=== PATIENT | male | born 1980 | race Caucasian/White ===

== ENCOUNTER 2023-12-16 13:57 | Inpatient (IN) | payer OTHER ==
[2023-12-16] MEDS ORDERED: LOPERAMIDE HCL 2 MG CAPSULE PO PRN (17:47)
[2023-12-16] MEDS ORDERED: NALOXONE HCL 0.4 MG/ML VIAL IM PRN (17:47)
[2023-12-16] MEDS ORDERED: BENZONATATE 200 MG CAPSULE PO PRN (17:47)
[2023-12-16] MEDS ORDERED: NICOTINE POLACRILEX 2 MG GUM BUC PRN (17:47)
[2023-12-16] MEDS ORDERED: MAG HYDROX/AL HYDROX/SIMETH 30 ML UNIT-DOSE CUP PO PRN (17:47)
[2023-12-16] MEDS ORDERED: BENZOCAINE/MENTHOL (CHLORASEPTIC ) LOZENGE MM PRN (17:47)
[2023-12-16] MEDS ORDERED: NALOXONE HCL (KLOXXADO) 8 MG SPRAY NS PRN (17:47)
[2023-12-16] MEDS ORDERED: MAGNESIUM HYDROX 2400MG/30ML ORAL SUSPENSION 30 ML CUP PO PRN (17:47)
[2023-12-16] MEDS ORDERED: IBUPROFEN 600 MG TABLET (FP) PO PRN (17:47)
[2023-12-16] MEDS ORDERED: P-EPHED 60MG/TRIPROLIDI 2.5MG TABLET PO PRN (17:47)
[2023-12-16] MEDS ORDERED: guaiFENesin 600 MG TABLET.ER (FP) PO PRN (17:47)
[2023-12-16] MEDS ORDERED: ONDANSETRON *ODT* 4 MG TABLET SL PRN (17:47)
[2023-12-16] MEDS ORDERED: DICYCLOMINE HCL 10 MG CAPSULE PO PRN (17:47)
[2023-12-16] MEDS ORDERED: IBUPROFEN 400 MG TABLET (FP) PO PRN (17:47)
[2023-12-16] MEDS ORDERED: BISMUTH SUBSALICYLATE 524 MG/30 ML PO PRN (17:47)
[2023-12-16] MEDS ORDERED: POLYETHYLENE GLYCOL (HEALTHYLAX) 3350 17 GM PACKET PO PRN (17:47)
[2023-12-16] MEDS: methaDONE HCL 10 MG TABLET (FOR DETOX USE ONLY) PO ONE (19:17)
[2023-12-16] MEDS: ACETAMINOPHEN 325 MG TABLET (FP) PO PRN (19:23)
[2023-12-16] MEDS: clonazePAM 0.5 MG ODT TABLETS SL PRN (19:23)
[2023-12-16] MEDS: THIAMINE 100 MG TABLET PO SCH (21:02)
[2023-12-16] MEDS: MELATONIN 5 MG TABLETS PO SCH (21:02)
[2023-12-16] MEDS: METHOCARBAMOL 500 MG TABLET PO PRN (22:38)
[2023-12-17] MEDS: cloNIDine HCL 0.1 MG TABLET PO PRN (05:41)
[2023-12-17] MEDS: PRENATAL VITAMINS W/ FOLIC ACID TABLET (FP) PO SCH (09:28)
[2023-12-17 11:55] LABS: HEMATOCRIT 43.1 % (35.4-49); MCH 29.9 pg (25.7-33.7); MCHC 32.6 g/dl (32.0-35.9); MEAN CELL VOLUME 91.7 fl (80-96); MEAN PLT VOLUME 8.5 fl (7.5-11.1); PLATELET COUNT 315 10^3/uL (134-434); RDW 13.5 % (11.9-15.9); WHITE BLOOD COUNT 6.3 K/mm3 (4.0-10.0)
[2023-12-17 11:58] LABS: POTASSIUM 4.5 mmol/L (3.5-5.1)
[2023-12-17 12:04] LABS: ALBUMIN 3.5 g/dl (3.4-5.0); BLOOD UREA NITROGEN 18.1 mg/dL (7-18)
[2023-12-17 12:05] LABS: CALCIUM 9.5 mg/dL (8.5-10.1)
[2023-12-17 12:07] LABS: CREATININE 1.1 mg/dL (0.55-1.3)
[2023-12-17 12:09] LABS: BILIRUBIN,TOTAL 0.2 mg/dL (0.2-1); TOT PROT 7.3 g/dl (6.4-8.2)
[2023-12-17] MEDS: hydrOXYzine PAMOATE 25 MG CAPSULE (FP) PO PRN (22:04)
[2023-12-18] MEDS: methaDONE HCL 10 MG TABLET (FOR DETOX USE ONLY) PO ONE (09:28)
[2023-12-18] MEDS: diazePAM 5 MG TABLET PO SCH (10:19)
[2023-12-18] MEDS: clonazePAM 0.5 MG ODT TABLETS SL PRN (19:24)
[2023-12-18 20:40] VITALS: RESP 18
[2023-12-19 09:31] VITALS: BP 116/74; PULSE 87; TEMP 97
== END 2023-12-19 11:12 | disposition home or self-care (01) | DRG 773 ==
LOC: YASAS 13:57 → Y3N 17:53
PROVIDERS: ADMIT Allergy & Immunology; ATTEND Surgery
PROC: HZ2ZZZZ Detoxification Services for Substance Abuse Treatment (ICD-10-PCS; principal; 2023-12-16)
DX: F11.23 Opioid dependence with withdrawal (principal); F14.20 Cocaine dependence, uncomplicated; F13.20 Sedative, hypnotic or anxiolytic dependence, uncomplicated; F17.210 Nicotine dependence, cigarettes, uncomplicated; F19.24 Other psychoactive substance dependence with psychoactive substance-induced mood disorder; F41.9 Anxiety disorder, unspecified
CPT/HCPCS: 36415; 80053; 80305; 80307; 85027; 86780; 93005; 93010